=== PATIENT | female | born 1995 | race Caucasian/White ===

== ENCOUNTER 2016-10-19 23:53 | Emergency (ER) | payer BC ==
[2016-10-19 23:58] VITALS: O2SAT 98
[2016-10-20 00:34] LABS: BACTERIA 2+ /hpf (NONE SEEN); COLOR AMBER; LEUKOCYTE ESTERASE,URINE 2+ (NEGATIVE); MUCUS TRACE /lpf (NONE-1+); NITRITE,URINE POSITIVE (NEGATIVE); WBC,URINE 50-182 /hpf (0-3)
[2016-10-20] MEDS ORDERED: CEPHALEXIN 500 MG CAP PO ONE (00:50)
[2016-10-20] MEDS ORDERED: CEPHALEXIN 500MG PREPACK#4 BTL TAKEHOME ONE (00:50)
[2016-10-20] MEDS ORDERED: HYDROCOD/APAP 5/325 PREPACK#6 BTL TAKEHOME ONE (00:50)
--- NOTE | 2016-10-20 00:50 | EDPHY ---
H & P Stated Complaint: UTI HPI/ROS: Chief complaint: Urinary tract infection History of present illness: This is a 21-year-old female who presents to the emergency department concerned she has urinary tract infection. Patient reports the onset of symptoms over the last day. She primarily reports dysuria and urinary frequency and urgency. She denies precipitating factors. She denies alleviating factors. She denies other associated signs or symptoms including no fevers, no nausea or vomiting, no back or flank pain. She has a history of urinary tract infections and this feels similar. - Personal History Current Tetanus/Diphtheria Vaccine: Unsure Current Tetanus Diphtheria and Acellular Pertussis (TDAP): Unsure - Medical/Surgical History Hx Asthma: No Hx Chronic Respiratory Disease: No Hx Diabetes: No Hx Cardiac Disease: No Hx Renal Disease: No Hx Cirrhosis: No Hx Alcoholism: No Hx HIV/AIDS: No Hx Splenectomy or Spleen Trauma: No Other PMH: PMH: CELIAC,. PSH: DENIES - Social History Smoking Status: Never smoked - Physical Exam Exam: General Appearance: Alert and no distress. Eyes: Pupils equal and round no injection. Respiratory: Chest is non tender, lungs are clear to auscultation. Cardiac: regular rate and rhythm Gastrointestinal: Abdomen is soft and non tender, no masses, bowel sounds normal. Genitourinary: No CVA tenderness Musculoskeletal: Neck is supple and non tender. Extremities have full range of motion and are non tender. Skin: No rashes or lesions. Neurological: Alert and oriented. Strength and sensation intact and symmetrical. Constitutional: Initial Vital Signs Temperature (C) 36.7 C 10/19/16 23:55 Heart Rate 70 10/19/16 23:55 Respiratory Rate 12 10/19/16 23:55 Blood Pressure 112/71 10/19/16 23:55 O2 Sat (%) 98 10/19/16 23:55 O2 Delivery Mode Room Air Allergies/Adverse Reactions: No Known Allergies Allergy (Unverified 12/30/13 23:38) Home Medications: Medication Instructions Recorded Cephalexin [Keflex] 500 mg PO TID 5 Days 10/20/16 Medical Decision Making ED Course/Re-evaluation: Patient seen under the supervision of my secondary supervising physician Dr. Juan C Matute. Patient presents to the emergency department concerned she has a urinary tract infection. History, physical exam and urinalysis concerning for UTI. No evidence of complications such as pyelonephritis or urosepsis. Review of previous urine culture shows her to be pansensitive to tested antibiotics. She is started on Keflex. Home care is discussed. She is asked to follow up with her primary care doctor for recheck. Return precautions are given. Patient voiced understanding and agreement with plan. - Data Points Laboratory Results: 10/20/16 10/20/16 00:26 00:00 Urine Color DAILY Urine Appearance HAZY Urine pH 6.0 (5.0-7.5) Ur Specific [place] 1.003 (1.002-1.030) Urine Protein 1+ H (NEGATIVE) Urine Ketones NEGATIVE (NEGATIVE) Urine Blood 3+ H (NEGATIVE) Urine Nitrate POSITIVE H (NEGATIVE) Urine Bilirubin NEGATIVE (NEGATIVE) Urine Urobilinogen 2.0 EU H EU (0.2-1.0) Ur Leukocyte Esterase 2+ H (NEGATIVE) Urine RBC 1-3 /hpf /hpf (0-3) Urine WBC 50-182 /hpf H /hpf (0-3) Ur Epithelial Cells TRACE /lpf /lpf (NONE-1+) Urine Bacteria 2+ /hpf H /hpf (NONE SEEN) Urine Mucus TRACE /lpf /lpf (NONE-1+) Urine Glucose NEGATIVE (NEGATIVE) Urine Test NEGATIVE Medications Given: Discontinued Medications Cephalexin (Keflex 500 Mg Prepack#4) 1 btl TAKEHOME EDNOW ONE PRN Reason: Protocol Stop: 10/20/16 00:51 Last Admin: 10/20/16 01:02 Dose: 1 btl Cephalexin HCl (Keflex) 500 mg PO EDNOW ONE PRN Reason: Protocol Stop: 10/20/16 00:51 Last Admin: 10/20/16 01:02 Dose: 500 mg Departure - Departure Disposition: Home, Routine, Self-Care Clinical Impression: Urinary tract infection Qualifiers: Urinary tract infection type: acute cystitis Hematuria presence: with hematuria Qualified Code(s): N30.01 - Acute cystitis with hematuria Condition: Good Instructions: Urinary Tract Infection in Women (ED) Additional Instructions: Follow-up with a primary care doctor for continued evaluation and care next week Take all antibiotics as prescribed until finished even feeling better In addition You have been prescribed [[place]] for pain. [[place]] contains Tylenol , do not take extra Tylenol/acetaminophen/Apap with it. It is sedating. If symptoms worsen or new symptoms develop return to the emergency room for recheck Referrals: NONE *PRIMARY CARE P,. [Primary Care Provider] - As per Instructions [facility],. [Clinic] - As per Instructions Prescriptions: Cephalexin [Keflex] 500 mg PO TID 5 Days
[2016-10-20 01:04] VITALS: BP 116/64; PULSE 74; RESP 16; TEMP 98.6
== END 2016-10-20 01:04 | disposition home or self-care (01) ==
DX: N30.01 Acute cystitis with hematuria (principal); B96.20 Unspecified Escherichia coli [E. coli] as the cause of diseases classified elsewhere